=== PATIENT | female | born 1950 | race Caucasian/White ===

== ENCOUNTER 2017-12-03 08:15 | Outpatient (CLI) | payer OTHER, MEDICARE, BC ==
--- NOTE | 2017-12-03 10:58 | DEXA Report ---
DEXA SCAN: 12/03/2017 CLINICAL INDICATION: Postmenopausal. TECHNIQUE: Dual energy x-ray absorptiometry (DXA) was performed on a [employer] system. Regions measured are the AP spine, femoral neck, and, if needed, forearm. COMPARISON: None. In accordance with the International Society for Clinical Densitometry (ISCD) guidelines, data from previous exams may be reanalyzed using current recommendations and techniques. This is done to allow a more accurate basis for comparison with the current study. FINDINGS The data for the lumbar spine is as follows: REGION BMD (g/cm/cm) T-SCORE Z-SCORE L1 0.972 -1.3 0.8 L2 1.106 -0.8 1.3 L3 1.256 0.5 2.6 L4 1.269 0.6 2.7 TOTAL 1.161 -0.2 1.9 NOTE: All evaluable vertebrae are used for classification. The data for the hip is as follows: REGION BMD (g/cm/cm) T-SCORE Z-SCORE Neck 0.899 -1.0 0.9 TOTAL 0.980 -0.2 1.5 NOTE: The femoral neck or total proximal femur, whichever is lowest, is used for classification. IMPRESSION: NORMAL. WHO CLASSIFICATION BASED ON THE INTERNATIONAL REFERENCE STANDARD IS NORMAL. FRACTURE RISK IS NOT INCREASED. RECOMMENDATION: Patients with diagnosis of osteoporosis or osteopenia should have regular bone mineral density assessment. For those eligible for Medicare, routine testing is allowed once every 2 years. Testing frequency can be increased for patients who have rapidly progressing disease or for those who are receiving medical therapy to restore bone mass. COMMENT: World Health Organization (WHO) definitions for osteoporosis and osteopenia: NORMAL BMD: T-score at 1.0 or higher, fracture risk is low. OSTEOPENIA BMD: T-score between 1.0 and -2.5, fracture risk is increased. OSTEOPOROSIS BMD: T-score at 2.5 or lower, fracture risk high. National Osteoporosis Foundation recommends: 1. Obtain adequate dietary calcium (at least 1200 mg per day) and vitamin D (400 -800 international units per day). 2. Participate, as appropriate, in regular weightbearing and muscle- strengthening exercise. 3. Avoid tobacco use and reduce alcohol and caffeine intake. 4. For more detailed information see the website at www.NOF.org. [email or web address] TD: 12/03/2017 11:07 DE
== END 2017-12-03 08:16 | disposition home or self-care (01) ==
LOC: DI 08:15
PROVIDERS: ATTEND Family Medicine
DX: Z13.820 Encounter for screening for osteoporosis (principal)
CPT/HCPCS: 77080

== ENCOUNTER 2017-12-03 12:14 | Outpatient (CLI) | payer OTHER, MEDICARE, BC ==
--- NOTE | 2017-12-05 09:10 | Mammography Report ---
DATE OF SERVICE: 12/03/2017 DIGITAL SCREENING MAMMOGRAM: 12/03/2017 CLINICAL INDICATION: A 67-year-old with history of benign biopsy, for screening. COMPARISON: 05/2012, 11/2010, 10/2008. TECHNIQUE: Routine CC and MLO projections were obtained of the breasts. Bilateral laterally exaggera brittany craniocaudal views. FINDINGS: The breasts again demonstrate scattered fibroglandular densities bilaterally. Coarse, typ ically benign calcifications are present. No suspicious masses, clustered microcalcifications, or regions o f architectural distortion are identified. IMPRESSION: BENIGN FINDINGS. RECOMMENDATION: ROUTINE ANNUAL SCREENING UNLESS OTHERWISE CLINICALLY INDICATED. BIRADS CATEGORY 2-BENIGN FINDINGS. STANDARD QUALIFYING STATEMENTS: 1. This examination was reviewed with the aid of Computer-Aided Detection (CAD). 2. A negative or benign imaging report should not delay biopsy if clinically suspicious findings are present. Consider surgical consultation if warranted. More than 5% of cancers are not identified by imaging. 3. Dense breasts may obscure an underlying neoplasm. TD: 12/05/2017 10:09
== END 2017-12-03 12:15 | disposition home or self-care (01) ==
LOC: DI 12:14
PROVIDERS: ATTEND Family Medicine
DX: Z12.31 Encounter for screening mammogram for malignant neoplasm of breast (principal)
CPT/HCPCS: 77067

== ENCOUNTER 2024-06-02 21:12 | Outpatient (CLI) | payer MEDICARE | END 2024-06-02 21:13 | disposition critical access hospital (66) | LOC: EMS 21:12 | DX: R40.0 Somnolence (principal); T42.4X1A Poisoning by benzodiazepines, accidental (unintentional), initial encounter; R50.9 Fever, unspecified | CPT/HCPCS: A0425; A0429 ==

== ENCOUNTER 2024-06-02 21:32 | Emergency (ER) | payer MEDICARE ==
[2024-06-02 22:21] LABS: BASOPHILS % (AUTO) 0.3 %; EOSINOPHILS # (AUTO) 0.1 10^3/uL (0.0-0.7); HCT - HEMATOCRIT 39.3 % (37.0-47.0); HGB - HEMOGLOBIN 12.6 g/dL (12.0-16.0); LYMPHOCYTES # (AUTO) 0.4 10^3/uL (1.5-3.5); LYMPHOCYTES % (AUTO) 6.6 %; MEAN CORPUSCULAR HEMOGLOBIN 29.4 pg (27.0-31.0); MEAN CORPUSCULAR HGB CONC 32.1 g/dL (32.0-36.0); MEAN CORPUSCULAR VOLUME 91.8 fL (81.0-99.0); MEAN PLATELET VOLUME 10.7 fL (7.9-10.8); MONOCYTES # (AUTO) 0.9 10^3/uL (0.0-1.0); MONOCYTES % (AUTO) 15.6 %; NEUTROPHILS # (AUTO) 4.4 10^3/uL (1.5-6.6); NEUTROPHILS % (AUTO) 76.2 %; PLT - PLATELET COUNT 151 10^3/uL (130-450); RED BLOOD COUNT 4.28 10^6/uL (4.20-5.40); RED CELL DISTRIBUTION WIDTH 13.4 % (12.0-15.0); WHITE BLOOD COUNT 5.7 x10^3/uL (4.8-10.8)
[2024-06-02] MEDS: SODIUM CHLORIDE 0.9% 1,000 ML IV STA (22:24)
[2024-06-02 22:41] LABS: ALBUMIN/GLOBULIN RATIO 1.9 (1.0-2.2); BILIRUBIN,TOTAL 0.4 mg/dL (0.2-1.0); CALCIUM 9.2 mg/dL (8.5-10.3); CREATININE 0.9 mg/dL (0.6-1.3); POTASSIUM 3.2 mmol/L (3.5-4.5); TOTAL PROTEIN 6.1 g/dL (6.4-8.9)
--- NOTE | 2024-06-03 00:05 | ED Physician Documentation ---
History of Present Illness - Stated complaint Stated Complaint: OD/AMS - Chief complaint Chief Complaint: General - History obtained from History obtained from: Patient, Family, EMS - Additonal information Additional information: The patient is brought to the emergency department by EMS for chief complaint of possible clonazepam overdose. The patient has Alzheimer's and caught her mixing what he thinks was about 5 tablets of clonazepam into mashed potatoes. She took a bite before he could take the bowl away from her. The patient has been a little more drowsy than usual after taking clonazepam. No vomiting afterwards. The patient did not mix any other medications. The does not think she did it with any intent of self-harm. He states that since having Alzheimer's, she sometimes gets strange ideas and executes them. The patient does not remember the incident but she denies complaints. PD PAST MEDICAL HISTORY - Allergies Allergies/Adverse Reactions: Allergies Allergy/AdvReac Type Severity Reaction Status Date / Time erythromycin base AdvReac Unknown Verified 06/02/24 21:54 neomycin AdvReac Unknown Verified 06/02/24 21:54 Penicillins AdvReac Unknown Verified 06/02/24 21:54 - Social History Does the pt smoke?: No Smoking Status: Never smoker PD ED PE NORMAL - Vitals Vital signs reviewed: Yes - General General: No acute distress, Well developed/nourished, Other (The patient is sitting in bed sleeping. 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 Drowsy but arousable quite readily with noxious stimulus.) - Psych Psych: Other (Calm and cooperative when awake.) Results - Vitals Vitals: Vital Signs - 24 hr 06/02/24 06/02/24 06/02/24 21:31 21:54 22:05 Temperature 36.9 C Heart Rate 74 73 71 Respiratory 18 18 16 Rate Blood Pressure 156/64 H 155/70 H 145/46 H O2 Saturation 96 94 96 06/02/24 06/02/24 06/02/24 22:29 23:00 23:30 Temperature Heart Rate 71 74 72 Respiratory 18 16 18 Rate Blood Pressure 145/66 H 156/73 H 143/66 H O2 Saturation 96 94 94 06/03/24 00:00 Temperature Heart Rate 75 Respiratory 18 Rate Blood Pressure 145/63 H O2 Saturation 98 Oxygen O2 Source Room air - Labs Labs: Laboratory Tests 06/02/24 06/02/24 22:08 22:08 WBC 5.7 RBC 4.28 Hgb 12.6 Hct 39.3 MCV 91.8 MCH 29.4 MCHC 32.1 RDW 13.4 Plt Count 151 MPV 10.7 Neut # (Auto) 4.4 Lymph # (Auto) 0.4 L [place] # (Auto) 0.9 Eos # (Auto) 0.1 Baso # (Auto) 0.0 Absolute Nucleated RBC 0.00 Nucleated RBC % 0.0 Sodium 136 Potassium 3.2 L Chloride 104 Carbon Dioxide 25 Anion Gap 7.0 BUN 17 Creatinine 0.9 Estimated GFR (MDRD) 61 L Glucose 95 Calcium 9.2 Total Bilirubin 0.4 AST 24 ALT 27 Alkaline Phosphatase 83 Total Protein 6.1 L Albumin 4.0 Globulin 2.1 Albumin/Globulin Ratio 1.9 Lipase 11 PD Medical Decision Making - ED course Complexity details: reviewed results, re-evaluated patient, considered differential, d/w patient, d/w family ED course: The patient was observed in the emergency department for nearly 3 hours without any signs of deterioration. She exhibited normal and stable vital signs and continued to be arousable to shaking of her shoulder or brief sternal rub. Her oxygen saturation and respirations remained within normal limits during this time. I felt the patient was stable for discharge home and I discussed this with the . She is drowsy but she has not deteriorated and has maintained her airway and respiratory drive throughout. Her blood pressure has not dropped. We have discussed that the patient will probably sleep well tonight and by morning medication should be worn off. We have discussed the usual indications for return. Departure - Departure Disposition: 01 Home, Self Care Clinical Impression: Accidental clonazepam overdose Qualifiers: Encounter type: initial encounter Qualified Code(s): T42.4X1A - Poisoning by benzodiazepines, accidental (unintentional), initial encounter Condition: Stable Instructions: ED Overdose Accidental Comments: Ms. Almanza has been observed in the emergency department for 2-1/2 hours and has had no deterioration in her mental status or her heart rate, blood pressure, or respiratory drive. At this point, she will most likely be drowsy all night and will simply have a good sleep. She is out of the window for worsening effect of the medication. Also, given that she only got one bite of the potatoes, she most likely did not get anywhere near the amount she put in to the potatoes, which is good. Please keep medications out of reach if she cannot be trusted to take them in the amounts that she is supposed to, to keep her safe. Forms: PCP List Discharge Date/Time: 06/03/24 00:16
[2024-06-03 00:20] VITALS: BP 145/63; O2SAT 98
== END 2024-06-03 00:16 | disposition home or self-care (01) ==
LOC: EDBD → ED 21:32 → MERGE 21:32 → ED 06-03 00:16
DX: T42.4X1A Poisoning by benzodiazepines, accidental (unintentional), initial encounter (principal); G30.9 Alzheimer's disease, unspecified; F02.80 Dementia in other diseases classified elsewhere, unspecified severity, without behavioral disturbance, psychotic disturbance, mood disturbance, and anxiety
CPT/HCPCS: 36415; 80053; 83690; 85025; 99283; 99284

== ENCOUNTER 2024-06-03 08:39 | Outpatient (CLI) | payer MEDICARE | END 2024-06-03 23:59 | disposition EMS.NT | LOC: EMS 08:39 | DX: U07.1 COVID-19 (principal) ==

== ENCOUNTER 2024-08-02 10:01 | Emergency (ER) | payer MEDICARE ==
--- NOTE | 2024-08-02 10:13 | ED Physician Documentation ---
PD HPI OPHTHO - Stated complaint Stated Complaint: GLUE IN EYE - History obtained from History obtained from: Patient - History of Present Illness Timing - onset: How many hours ago (1), Today Timing - details: Abrupt onset Location: Both (she was having eye irritation and wanted to put some cleansing drops in, but mistakenly used nail extension glue (cyanoacrylate). Got some in right eye and then just barely started drop on left when realized her eyelashes were stuck together with first drops.) Associated symptoms: Other (unable to open eyelids. Not having pain on cornea per se) Similar symptoms before: Has not had sx before PD PAST MEDICAL HISTORY - Present Medications Home Medications: Ambulatory Orders Medication Instructions Recorded Confirmed Donepezil [Aricept] 5 mg PO DAILY 08/02/24 08/02/24 Irbesartan 300 mg PO DAILY 08/02/24 08/02/24 amLODIPine [Norvasc] 5 mg PO DAILY 08/02/24 08/02/24 buPROPion HCL [Bupropion Xl] 300 mg PO DAILY 08/02/24 08/02/24 clonazePAM [Klonopin] 0.5 mg PO TID 08/02/24 08/02/24 - Allergies Allergies/Adverse Reactions: Allergies Allergy/AdvReac Type Severity Reaction Status Date / Time erythromycin base AdvReac Unknown Verified 08/02/24 10:15 neomycin AdvReac Unknown Verified 08/02/24 10:15 Penicillins AdvReac Unknown Verified 08/02/24 10:15 - Social History Does the pt smoke?: No Smoking Status: Never smoker PD ED PE NORMAL - Vitals Vital signs reviewed: Yes - General General: Alert and oriented X 3, Well developed/nourished - HEENT HEENT: Other (glue clump on left eyelashes, mostly upper one. Able to open eyes. Right with glob of glue holding both eyelashes together, so unable to open eye.) Results - Vitals Vitals: Oxygen O2 Source Room air PD Medical Decision Making - ED course Complexity details: considered differential (glued eyeliashes with cyanoacrylate. Used erythro ointment (for the ointment component that was eye compatible), with loosening of the glue. COrneal and vision are normal once eyelashes unstuck. ), d/w patient Departure - Departure Disposition: 01 Home, Self Care Clinical Impression: Foreign body of eyelid Condition: Stable Record reviewed to determine appropriate education?: Yes Follow-Up: Dimitri Painter MD [Primary Care Provider] - Comments: Ointments such as Vaseline or similar can help loosen up the cyanoacrylate that still stuck in the eyelashes. At this point the eyes lids are unstuck from each other which is a grimm part. The glue stuck in the eyelashes should continue to loosen up through the day and you can tease it out gently with a small comb or tweezers. Try not to take it out all at once so that you do not pull the eye lashes. There does not seem to be any injury to the eye itself. Forms: PCP List Discharge Date/Time: 08/02/24 11:40
[2024-08-02 10:18] VITALS: O2SAT 98
[2024-08-02] MEDS: ERYTHROMYCIN OPHTH OINT 1 GM TUBE EACHEYE STA (10:33)
[2024-08-02 10:41] VITALS: BP 164/62
== END 2024-08-02 11:40 | disposition home or self-care (01) ==
LOC: ED 10:01
DX: T15.12XA Foreign body in conjunctival sac, left eye, initial encounter (principal)
CPT/HCPCS: 99283; J3490